=== PATIENT | male | born 1980 | race Caucasian/White ===

== ENCOUNTER 2019-03-04 14:45 | Inpatient (IN) | payer OTHER ==
[2019-03-04] MEDS ORDERED: VANCOMYCIN IV PER PHARMACY 1 EACH MISC MISCELLANE PRN (15:06)
[2019-03-04] MEDS ORDERED: PIPERACILLIN-TAZOBACTAM 3.375 GM in SODIUM CHLORIDE 0.9% 100 ML IVPB STA (15:06)
[2019-03-04] MEDS ORDERED: ACETAMINOPHEN TAB 325 MG TAB PO PRN (15:17)
[2019-03-04] MEDS ORDERED: NALOXONE 0.4 MG/ML 1 ML VIAL IV PRN (15:17)
[2019-03-04] MEDS ORDERED: HYDROcodone/APAP 5-325MG 1 EACH TAB PO PRN (15:17)
[2019-03-04] MEDS ORDERED: ONDANSETRON 4 MG/2 ML VIAL IVP PRN (15:17)
--- NOTE | 2019-03-04 15:17 | ED ---
Skin/Abscess/FB HPI <Lc Richardson - Last Filed: 03/04/19 15:25> - General Source: patient, EMS Mode of arrival: EMS Limitations: no limitations <Moises Guardado - Last Filed: 03/04/19 15:31> - General Chief complaint: Skin/Abscess/Foreign Body Stated complaint: Wound/Abscess Time Seen by Provider: 03/04/19 14:53 - History of Present Illness Initial comments: 38-year-old male presents emergency Department with chief complaint of left hand abscess. Patient is a transfer from [facility]. Patient received vancomycin 2 g. Patient was updated on his tetanus. Patient does admit to IV drug use. Patient symptoms started 5 days ago. He does have a history of MRSA. No fevers or chills. He states he has pain with range of motion of his hand. He has noticed some redness TO his left forearm. (Moises Guardado) - Related Data Home Medications Medication Instructions Recorded Confirmed Buprenorphine HCl/Naloxone HCl 1 film SL BID 03/04/19 03/04/19 [Suboxone 8 mg-2 mg Sl Film] Gabapentin [Neurontin] 800 mg PO QID 03/04/19 03/04/19 Allergies Allergy/AdvReac Type Severity Reaction Status Date / Time No Known Allergies Allergy Verified 03/04/19 14:59 Review of Systems ROS Other: All systems not noted in ROS Statement are negative. <Lc Richardson - Last Filed: 03/04/19 15:25> ROS Other: All systems not noted in ROS Statement are negative. <Moises Guardado - Last Filed: 03/04/19 15:31> ROS Statement: Those systems with pertinent positive or pertinent negative responses have been documented in the HPI. Past Medical History Past Medical History: No Reported History History of Any Multi-Drug Resistant Organisms: MRSA Date of last positivie culture/infection: February 2013 MDRO Source:: knee Past Surgical History: Orthopedic Surgery Past Psychological History: No Psychological Hx Reported Smoking Status: Current every day smoker Past Alcohol Use History: Occasional Past Drug Use History: Heroin, Marijuana, Prescription Drug Abuse <Moises Guardado - Last Filed: 03/04/19 15:31> General Exam Limitations: no limitations General appearance: alert, in no apparent distress Head exam: Present: atraumatic, normocephalic, normal inspection Respiratory exam: Present: normal lung sounds bilaterally. Absent: respiratory distress, wheezes, rales, rhonchi, stridor Cardiovascular Exam: Present: regular rate, normal rhythm, normal heart sounds. Absent: systolic murmur, diastolic murmur, rubs, gallop, clicks Extremities exam: Present: other (Left hand dorsal aspect there is extensive abscess approximately 3 cm in diameter, there is minimal drainage, pain with range of motion of the hand erythema extends to the left elbow region.) Skin exam: Present: warm, dry <Moises Guardado - Last Filed: 03/04/19 15:31> Course Vital Signs 03/04/19 14:59 Temperature 98 F Pulse Rate 94 Respiratory 90 H Rate Blood Pressure 131/81 O2 Sat by Pulse 98 Oximetry Procedures - Incision & Drainage Consent Obtained: verbal consent Site: hand (Left) Size (cm): 3 I&D Cleaning Method: Chloroprep Scalpel Used: #11 Culture Obtained?: Yes Patient Tolerated Procedure: well, no complications <Moises Guardado - Last Filed: 03/04/19 15:31> Medical Decision Making <Lc Richardson - Last Filed: 03/04/19 15:25> <Moises Guardado - Last Filed: 03/04/19 15:31> - Medical Decision Making I, Derian Richardson, personally saw and examined the patient. I have reviewed and agree with the PA findings, including all diagnostic interpretations and treatment plans as written unless otherwise stated. I was present for the singer portions of any procedures performed and the inclusive time noted for any critical care statement. (Lc Richardson) 38-year-old male presented for left hand abscess. Patient we given Zosyn addition to his vancomycin he received that prior Hospital. Patient had repeat labs included CBC, lactic and blood cultures. Wound culture was obtained. Patient be admitted to medicine with consult to surgery (Moises Guardado) Disposition <Lc Richardson - Last Filed: 03/04/19 15:25> <Moises Guardado - Last Filed: 03/04/19 15:31> Clinical Impression: Abscess of left hand, Cellulitis of left arm, IVDU (intravenous drug user) Disposition: ADMITTED IP TO THIS HOSP Condition: Fair Referrals: Teddy Robledo MD [Primary Care Provider] - 1-2 days
[2019-03-04] MEDS ORDERED: MORPHINE SULFATE 4 MG/ML SYRINGE IVP STA (15:36)
[2019-03-04] MEDS: SODIUM CHLORIDE 0.9% 1,000 ML IV SCH (15:51)
[2019-03-04 16:17] LABS: Basophils # (A) 0.1 k/uL (0-0.2); Basophils % (A) 0 %; Eosinophils # (A) 0.4 k/uL (0-0.7); Eosinophils % (A) 2 %; HCT 37.7 % (39.0-53.0); HGB 12.6 gm/dL (13.0-17.5); Lymphocytes # (A) 1.6 k/uL (1.0-4.8); Lymphocytes % (A) 10 %; MCH 29.2 pg (25.0-35.0); MCHC 33.4 g/dL (31.0-37.0); MCV 87.5 fL (80.0-100.0); Mean Platelet Volume 7.2; Monocytes # (A) 0.9 k/uL (0-1.0); Monocytes % (A) 6 %; Neutrophils % (A) 79 %; Platelet Count 207 k/uL (150-450); RBC 4.31 m/uL (4.30-5.90); RDW 14.2 % (11.5-15.5); WBC 16.5 k/uL (3.8-10.6)
--- NOTE | 2019-03-04 16:55 | P.HPIM ---
History of Present Illness 38-year-old pleasant gentleman with known history of IV drug use has been doing that for the Lasix came in with an abscess of the left hand with cellulitis extending up to the arm patient has extensive abscess which was drained in ER will need the surgical drainage by orthopedic surgery. Patient was started on vancomycin as well as Zosyn patient may not require Zosyn wound cultures were obtained blood cultures were obtained patient was comparing of fever for couple days ago with the chills. Patient is on Suboxone. We'll also consult infectious disease. Patient is complaining of severe throbbing pain and abscess site area patient has a small pimple-like abscess in the right dorsal aspect of the hand as well Review of Systems REVIEW OF SYSTEMS: CONSTITUTIONAL: No fever, no malaise, no fatigue. HEENT: No recent visual problems or hearing problems. Denied any sore throat. CARDIOVASCULAR: No chest pain, orthopnea, PND, no palpitations, no syncope. PULMONARY: No shortness of breath, no cough, no hemoptysis. GASTROINTESTINAL: No diarrhea, no nausea, no vomiting, no abdominal pain. NEUROLOGICAL: No headaches, no weakness, no numbness. HEMATOLOGICAL: Denies any bleeding or petechiae. GENITOURINARY: Denies any burning micturition, frequency, or urgency. MUSCULOSKELETAL/RHEUMATOLOGICAL: Denies any joint pain, swelling, or any muscle pain. ENDOCRINE: Denies any polyuria or polydipsia. The rest of the 14-point review of systems is negative. Past Medical History Past Medical History: No Reported History History of Any Multi-Drug Resistant Organisms: MRSA Date of last positivie culture/infection: February 2013 MDRO Source:: knee Past Surgical History: Orthopedic Surgery Additional Past Surgical History / Comment(s): rt knee arthoscopy Past Anesthesia/Blood Transfusion Reactions: No Reported Reaction Past Psychological History: No Psychological Hx Reported Smoking Status: Current every day smoker Past Alcohol Use History: Occasional Past Drug Use History: Heroin, Marijuana, Prescription Drug Abuse - Past Family History Mother Family Medical History: Cancer Medications and Allergies Home Medications Medication Instructions Recorded Confirmed Type Buprenorphine HCl/Naloxone HCl 1 film SL BID 03/04/19 03/04/19 History [Suboxone 8 mg-2 mg Sl Film] Gabapentin [Neurontin] 800 mg PO QID 03/04/19 03/04/19 History Allergies Allergy/AdvReac Type Severity Reaction Status Date / Time No Known Allergies Allergy Verified 03/04/19 14:59 Physical Exam Vitals: Vital Signs Temp Pulse Resp BP Pulse Ox 03/04/19 15:56 98 F 92 20 132/78 99 03/04/19 14:59 98 F 94 20 131/81 98 Intake and Output 03/04/19 03/04/19 03/04/19 06:59 14:59 22:59 Other: Weight 106.594 kg PHYSICAL EXAMINATION: GENERAL: The patient is alert and oriented x3, not in any acute distress. Obese HEENT: Pupils are round and equally reacting to light. EOMI. No scleral icterus. No conjunctival pallor. Normocephalic, atraumatic. No pharyngeal erythema. No thyromegaly. CARDIOVASCULAR: S1 and S2 present. No murmurs, rubs, or gallops. PULMONARY: Chest is clear to auscultation, no wheezing or crackles. ABDOMEN: Soft, nontender, nondistended, normoactive bowel sounds. No palpable organomegaly. MUSCULOSKELETAL: No joint swelling or deformity.Abscess in the left arm as described above along with the abscess on the left dorsum with swelling of and tired left hand with redness local is of temperature Abscess as mentioned above cellulitis extensive cellulitis and patient has a very small abscess in the dorsum of the right hand as well EXTREMITIES: No cyanosis, clubbing, or pedal edema. NEUROLOGICAL: Gross neurological examination did not reveal any focal deficits. SKIN: No rashes. Results CBC & Chem 7: 03/04/19 15:34 Labs: Abnormal Lab Results - Last 24 Hours (Table) 03/04/19 Range/Units 15:34 WBC 16.5 H (3.8-10.6) k/uL Hgb 12.6 L (13.0-17.5) gm/dL Hct 37.7 L (39.0-53.0) % Neutrophils # 13.0 H (1.3-7.7) k/uL Thrombosis Risk Factor Assmnt - Choose All That Apply Each Factor Represents 1 point: Obesity (BMI >25) Thrombosis Risk Factor Assessment Total Risk Factor Score: 1 Thrombosis Risk Factor Assessment Level: Low Risk Assessment and Plan Plan: Abscess of the left hand with extensive cellulitis along with small abscess in the right hand (abscess will need another drainage of pelvic surgery was consulted will continue with the Lianna and vancomycin IV fluids. -IV drug use history: Extensive counseling was provided and patient will be resumed on his Suboxone, will obtain acute hepatitis panel -Marijuana use and nicotine abuse: Counseling was provided -Leukocytosis secondary to abscess Patient will need pharmacologic GI as well as DVT prophylaxis
[2019-03-04 17:06] LABS: Anion Gap 6 mmol/L; Blood Urea Nitrogen 17 mg/dL (9-20); Calcium 9.4 mg/dL (8.4-10.2); Carbon Dioxide 23 mmol/L (22-30); Chloride 109 mmol/L (98-107); Glucose 116 mg/dL (74-99); Potassium 5.1 mmol/L (3.5-5.1); Sodium 138 mmol/L (137-145)
[2019-03-04] MEDS: GABAPENTIN 400 MG CAP PO SCH ×2 (17:39→20:37)
[2019-03-04] MEDS: NICOTINE 21MG/24HR PATCH TRANSDERM SCH (17:39)
--- NOTE | 2019-03-04 18:17 | P.CNOR ---
History of Present Illness - [facility] Consult date: 03/04/19 Consult reason: other (left hand abscess) History of present illness: The patient is a 38-year-old [id number] male who was transferred from [facility] for treatment of an abscess in his left hand. He has a history of IV drug abuse and admits to injecting heroin in the back of his left hand about a week ago. He most recently injected last night in the left antecubital fossa. He states the pain, redness and swelling in his left hand began a few days ago. He denies fevers, chills or recent illness. He has a history of prior MRSA infection in his right knee which was treated with "scrapings." The pain is localized to the left hand and wrist and he denies other focal areas of pain at this time. He works in a restaurant. He smokes a pack a day. Past Medical History Past Medical History: No Reported History History of Any Multi-Drug Resistant Organisms: MRSA Year Discovered:: February 2013 MDRO Source:: knee Past Surgical History: Orthopedic Surgery Additional Past Surgical History / Comment(s): rt knee arthoscopy Past Anesthesia/Blood Transfusion Reactions: No Reported Reaction Past Psychological History: No Psychological Hx Reported Smoking Status: Current every day smoker Past Alcohol Use History: Occasional Past Drug Use History: Heroin, Marijuana, Prescription Drug Abuse - Past Family History Mother Family Medical History: Cancer Medications and Allergies Home Medications Medication Instructions Recorded Confirmed Type Buprenorphine HCl/Naloxone HCl 1 film SL BID 03/04/19 03/04/19 History [Suboxone 8 mg-2 mg Sl Film] Gabapentin [Neurontin] 800 mg PO QID 03/04/19 03/04/19 History Allergies Allergy/AdvReac Type Severity Reaction Status Date / Time No Known Allergies Allergy Verified 03/04/19 14:59 Physical Examination There is a 4 cm x 4 cm focal abscess on the dorsal aspect of the left hand at the midshaft level of the fourth metacarpal. There is purulent, reddish-brown fluid draining from a small, punctate wound at its center. 2-3 mL was expressed with manual pressure. The overlying skin is thin and friable. There is moderate, diffuse edema throughout the dorsal radial aspect of the hand and first web space. This is minimally tender to palpation and there is no subcutaneous crepitus. Gentle passive flexion and extension of the fingers reveals minimal discomfort but he has pain with active motion, particularly the extreme of flexion. There are no discrete tendinous adhesions and he can actively extend all fingers. He has no pain with active or passive wrist motion. Mild erythema is noted extending custodial up the volar forearm. This is also nontender to palpation. There is a 2 cm x 3 cm raised, erythematous area over the volar wrist and another over the dorsal aspect of the right hand. These are not tender to palpation and not fluctuant. Results - Labs Labs: Abnormal Lab Results - Last 24 Hours (Table) 03/04/19 03/04/19 Range/Units 15:34 16:24 WBC 16.5 H (3.8-10.6) k/uL Hgb 12.6 L (13.0-17.5) gm/dL Hct 37.7 L (39.0-53.0) % Neutrophils # 13.0 H (1.3-7.7) k/uL Chloride 109 H (98-107) mmol/L Creatinine 0.62 L (0.66-1.25) mg/dL Glucose 116 H (74-99) mg/dL H & H 03/04/19 Range/Units 15:34 Hgb 12.6 L (13.0-17.5) gm/dL Hct 37.7 L (39.0-53.0) % Result Diagrams: 03/04/19 15:34 03/04/19 16:24 Assessment and Plan Assessment: 1. Left hand abscess 2. History of IV drug/polysubstance abuse and MRSA infection 3. Nicotine addiction Plan: I discussed the clinical findings with Mr. Miller in detail. We discussed treatment options including local wound care and continued IV antibiotics versus surgical debridement. The abscess appears quite localized and it is actively draining. The surrounding skin is very friable and likely to necrosis with additional surgical trauma. I recommended continuing the IV antibiotics overnight and reassessing the hand in the morning. If he fails to show significant clinical improvement, we will proceed with surgical incision and drainage. We discussed risks and benefits including wound healing complications, extensor tendon adhesions, persisting infection and possible need for additional surgery. We also discussed the negative effects of cigarette smoking, particularly as it relates to wound healing complications and increased risk of infection. I strongly advised him to quit or at least cut down. I recommended beginning application of warm compresses (do not apply ice). The patient was instructed to perform active and passive motion of his fingers, hand and wrist as frequently as possible. Dressings may be changed as needed. Questions were invited and answered. The patient expressed understanding and was in agreement with the initial treatment plan. Steve Beck D.O. [facility]
--- NOTE | 2019-03-04 18:55 | XR ---
EXAMINATION TYPE: XR hand complete LT DATE OF EXAM: 03/04/2019 COMPARISON: NONE HISTORY: Hand abscess TECHNIQUE: 3 views FINDINGS: There is diffuse soft tissue swelling around the metacarpals. I see no fracture nor disloca tion. There is no focal bone destruction. Joint spaces are fairly normal. IMPRESSION: Soft tissue swelling. No fracture seen. No sign of osteomyelitis.
[2019-03-04] MEDS: NON-FORMULARY DRUG (Buprenorphine Hcl/Naloxone Hcl [Suboxone 8 Mg-2 Mg Sl Film] 1 FILM) SL SCH (20:37)
[2019-03-04] MEDS: FAMOTIDINE 20 MG TAB PO SCH (20:37)
[2019-03-04] MEDS: VANCOMYCIN 1,750 MG in SODIUM CHLORIDE 0.9% 500 ML 500 ML IVPB SCH (20:37)
[2019-03-04] MEDS: MORPHINE SULFATE 4 MG/ML SYRINGE IV PRN (21:32)
--- NOTE | 2019-03-04 22:30 | P.CONS ---
History of Present Illness - Reason for Consult Consult date: 03/04/19 Left hand abscess and cellulitis Requesting physician: Eli Walker - Chief Complaint Left hand and arm pain and swelling x few days - History of Present Illness Patient is 38 year male with a past medical history significant for IV drug abuse last her dose has been about a week ago the patient injecting dorsum of his left hand, although the last few days the patient left hand dorsum has becoming more swollen and red and painful pain described to without clubbing almost 10 out of 10 with severe the patient did have associated significant swelling and redness of the left hand with redness spreading to the left forearm, with the symptoms the patient presented to [facility] ER the patient was evaluated by the ER physician on arrival to the area the patient has been afebrile however did have elevated white count of 16,000 the patient did loaiza ve x-rays of the left hand which did show some soft tissue swelling but no bony changes patient has been started on Zosyn and vancomycin subsequently added and infectious disease was consulted for further recommendation regarding antibiotic therapy Review of Systems CONSTITUTIONAL: Positive for weakness. Some chills but denies high-grade Fever EYES: No complaint. ENT:No complaint. RESPIRATORY: No complaint. CARDIOVASCULAR: No complaint. GENITOURINARY: No complaint. GASTROINTESTINAL: No complaint. MUSCULOSKELETAL: No complaint. INTEGUMENTARY: As per history of present illness. PSYCHOLOGICAL: No complaint. ENDOCRINE: No complaint. NEUROLOGIC: No complaint. Past Medical History Past Medical History: No Reported History History of Any Multi-Drug Resistant Organisms: MRSA Year Discovered:: February 2013 MDRO Source:: knee Past Surgical History: Orthopedic Surgery Additional Past Surgical History / Comment(s): rt knee arthoscopy Past Anesthesia/Blood Transfusion Reactions: No Reported Reaction Past Psychological History: No Psychological Hx Reported Smoking Status: Current every day smoker Past Alcohol Use History: Occasional Past Drug Use History: Heroin, Marijuana, Prescription Drug Abuse - Past Family History Mother Family Medical History: Cancer Medications and Allergies Home Medications Medication Instructions Recorded Confirmed Type Buprenorphine HCl/Naloxone HCl 1 film SL BID 03/04/19 03/04/19 History [Suboxone 8 mg-2 mg Sl Film] Gabapentin [Neurontin] 800 mg PO QID 03/04/19 03/04/19 History Allergies Allergy/AdvReac Type Severity Reaction Status Date / Time No Known Allergies Allergy Verified 03/04/19 14:59 Physical Exam Vitals: Vital Signs Temp Pulse Pulse Resp BP BP Pulse Ox 03/04/19 16:57 99.0 F 89 16 166/89 99 03/04/19 15:56 98 F 92 20 132/78 99 03/04/19 14:59 98 F 94 20 131/81 98 Intake and Output 03/04/19 03/04/19 03/04/19 06:59 14:59 22:59 Other: Weight 106.594 kg GENERAL DESCRIPTION: Middle-aged male lying in bed, no distress. No tachypnea or accessory muscle of respiration use. HEENT: Shows Pallor , no scleral icterus. Oral mucous membrane is dry. No pharyngeal erythema or thrush NECK: Trachea central, no thyromegaly. LUNGS: Unlabored breathing. Clear to auscultation anteriorly. No wheeze or crackle. HEART: S1, S2, regular rate and rhythm. No loud murmur ABDOMEN: Soft, no tenderness , guarding or rigidity, no organomegaly EXTREMITIES: Left hand dorsum is swollen and red with purulent drainage tender and warm to touch. SKIN: No rash, no masses palpable. NEUROLOGICAL: The patient is awake, alert, oriented x3, mood and affect normal. Results CBC & Chem 7: 03/04/19 15:34 03/04/19 16:24 Labs: Abnormal Lab Results - Last 24 Hours (Table) 03/04/19 03/04/19 Range/Units 15:34 16:24 WBC 16.5 H (3.8-10.6) k/uL Hgb 12.6 L (13.0-17.5) gm/dL Hct 37.7 L (39.0-53.0) % Neutrophils # 13.0 H (1.3-7.7) k/uL Chloride 109 H (98-107) mmol/L Creatinine 0.62 L (0.66-1.25) mg/dL Glucose 116 H (74-99) mg/dL Assessment and Plan Assessment: 1-patient presented to hospital with acute left hand dorsum and forearm swelling and redness have a some drainage in this patient who did have history of IV drug use injury to the area about a week ago likely with evidence of abscess with secondary cellulitis organism need to cover the gram-positive skin kraig such as strep as well as MRSA and also gram-negative pathogen such as pseudomonas aeruginosa, (1) Abscess of left hand Current Visit: Yes Status: Acute Code(s): L02.512 - CUTANEOUS ABSCESS OF LEFT HAND SNOMED Code(s): 02099120231279752 (2) Cellulitis of left arm Current Visit: Yes Status: Acute Code(s): L03.114 - CELLULITIS OF LEFT UPPER LIMB SNOMED Code(s): 680996906 Plan: 1-blood and local culture has been obtained those will be followed 2-hand surgery is on the case and possible drainage of this abscess tomorrow 3-patient will be treated with vancomycin pharmacy to dose target trough of 15 or watching Vanco trough and kidney function closely however discontinue Zosyn and start the patient cefepime 2 g every 12hr to cover for the gram negative pathogen We will follow-up on clinical condition and cultures to further adjust m edication if needed Thank you for this consultation will follow this patient along with you Time with Patient: Greater than 30
[2019-03-04] MEDS: CEFEPIME 2 GM in SODIUM CHLORIDE 0.9% 100 ML IVPB SCH (23:33)
[2019-03-04] MEDS: HEPARIN SODIUM,PORCINE 5,000 UNIT/ML 1 ML VIAL SQ SCH (23:33)
[2019-03-05] MEDS ORDERED: PIPERACILLIN-TAZOBACTAM 3.375 GM in SODIUM CHLORIDE 0.9% 100 ML IVPB SCH ×2
[2019-03-05] MEDS: MORPHINE SULFATE 4 MG/ML SYRINGE IV PRN ×5 (02:10→23:19)
[2019-03-05] MEDS: VANCOMYCIN 1,750 MG in SODIUM CHLORIDE 0.9% 500 ML 500 ML IVPB SCH ×3 (05:52→23:19)
[2019-03-05] MEDS: SODIUM CHLORIDE 0.9% 1,000 ML IV SCH ×2 (05:53→17:39)
--- NOTE | 2019-03-05 06:54 | P.PN ---
Subjective Progress Note Date: 03/05/19 The patient reports that he has been working on active and passive motion of his hand feels the pressure has decreased. States the pain is well-controlled. Objective - Vital Signs Vital signs: Vital Signs Temp 99.5 F 03/05/19 05:00 Pulse 109 H 03/05/19 06:03 Resp 20 03/05/19 05:00 BP 130/69 03/05/19 05:00 Pulse Ox 96 03/05/19 05:00 Intake & Output 03/04/19 03/04/19 03/05/19 06:59 18:59 06:59 Intake Total 500 Balance 500 Weight 106.594 kg Intake: Oral 500 Other: # Voids 1 - Exam Patient was sleeping comfortably upon entering. Dressings shadowed with rust-colored fluid. Previously decompressed abscess shows fluid reaccumulation and a moderate amount of purulent fluid expressed again. Locally erythema around the wound has increased. He is still able to actively and passively extend the digits with only mild discomfort. - Additional findings Additional findings: X-ray, left hand: Demonstrates soft tissue swelling, most prominent dorsally. No subcutaneous air. No osseous lucencies or erosions to suggest osteomyelitis. - Labs CBC & Chem 7: 03/04/19 15:34 03/04/19 16:24 Labs: Abnormal Lab Results - Last 24 Hours (Table) 03/04/19 03/04/19 03/04/19 Range/Units 15:34 15:34 16:24 WBC 16.5 H (3.8-10.6) k/uL Hgb 12.6 L (13.0-17.5) gm/dL Hct 37.7 L (39.0-53.0) % Neutrophils # 13.0 H (1.3-7.7) k/uL ESR 25 H (0-15) mm/hr Chloride 109 H (98-107) mmol/L Creatinine 0.62 L (0.66-1.25) mg/dL Glucose 116 H (74-99) mg/dL C-Reactive Protein (<10.0) mg/L 03/04/19 Range/Units 19:07 WBC (3.8-10.6) k/uL Hgb (13.0-17.5) gm/dL Hct (39.0-53.0) % Neutrophils # (1.3-7.7) k/uL ESR (0-15) mm/hr Chloride (98-107) mmol/L Creatinine (0.66-1.25) mg/dL Glucose (74-99) mg/dL C-Reactive Protein 167.9 H (<10.0) mg/L Microbiology - Last 24 Hours (Table) 03/04/19 15:34 Gram Stain - Preliminary Arm - Left Wound Culture - Preliminary Assessment and Plan Assessment: 1. Left hand abscess 2. IV drug/polysubstance abuse and history of prior MRSA infection 3. Nicotine addiction Plan: The abscess is not adequately draining on its own and I recommended proceeding with formal operative incision and drainage. We discussed the likelihood of skin sloughing, wound breakdown and adhesions, possibly necessitating further surgery for wound coverage or tenolysis. The patient expressed understanding and was in agreement to proceed with surgery. Keep NPO. Plan for OR this afternoon. Steve Beck D.O. [facility]
[2019-03-05] MEDS: NON-FORMULARY DRUG (Buprenorphine Hcl/Naloxone Hcl [Suboxone 8 Mg-2 Mg Sl Film] 1 FILM) SL SCH ×2 (07:06→21:58)
[2019-03-05] MEDS: HEPARIN SODIUM,PORCINE 5,000 UNIT/ML 1 ML VIAL SQ SCH ×3 (07:06→23:19)
[2019-03-05] MEDS: FAMOTIDINE 20 MG TAB PO SCH ×2 (07:07→21:07)
[2019-03-05] MEDS: NICOTINE 21MG/24HR PATCH TRANSDERM SCH (07:08)
[2019-03-05] MEDS: CEFEPIME 2 GM in SODIUM CHLORIDE 0.9% 100 ML IVPB SCH ×2 (07:08→21:59)
[2019-03-05] MEDS: GABAPENTIN 400 MG CAP PO SCH ×4 (07:08→21:07)
[2019-03-05] MEDS: KETOROLAC 30 MG/ML 1 ML VIAL IVP PRN (08:21)
[2019-03-05] MEDS ORDERED: CEFEPIME 2 GM in SODIUM CHLORIDE 0.9% 100 ML IVPB SCH (09:00)
[2019-03-05 10:01] LABS: ALT 271 U/L (21-72); AST 182 U/L (17-59); Albumin 3.2 g/dL (3.5-5.0); Alkaline Phosphatase 98 U/L (38-126); Anion Gap 7 mmol/L; Blood Urea Nitrogen 11 mg/dL (9-20); Calcium 8.2 mg/dL (8.4-10.2); Carbon Dioxide 24 mmol/L (22-30); Chloride 105 mmol/L (98-107); Glucose 84 mg/dL (74-99); Sodium 136 mmol/L (137-145); Total Bilirubin 1.4 mg/dL (0.2-1.3); Total Protein 6.8 g/dL (6.3-8.2)
[2019-03-05 10:13] LABS: Potassium 4.8 mmol/L (3.5-5.1)
[2019-03-05 11:05] LABS: HCT 38.9 % (39.0-53.0); HGB 13.2 gm/dL (13.0-17.5); MCH 29.9 pg (25.0-35.0); MCV 88.1 fL (80.0-100.0); Mean Platelet Volume 9.6; Platelet Count 166 k/uL (150-450); RBC 4.41 m/uL (4.30-5.90); RDW 15.2 % (11.5-15.5); WBC 12.6 k/uL (3.8-10.6)
--- NOTE | 2019-03-05 14:03 | P.PN ---
Subjective 38-year-old with IV drug use is admitted for left hand cellulitis an abscess with a small abscess in the right hand. Patient will undergo incision and drainage of the left hand.wound cultures are showing gram-positive organism patient is presently on daptomycin and cefepime infectious disease evaluate the patient as well patient redness has come down but does have significant swelling and abscess which may need to be drained. Constitutional: Denied any fatigue denied any fever. Cardio vascular: denied any chest pain, palpitations Gastrointestinal denied any nausea vomiting Pulmonary: Denied any shortness of breath cough Neurologic denied any new focal deficits All inpatient medications were reviewed and appropriate changes in these medi cations as dictated in the interval history and assessment and plan. Objective - Vital Signs Vital signs: Vital Signs Temp 98.5 F 03/05/19 13:58 Pulse 82 03/05/19 13:58 Resp 16 03/05/19 13:58 BP 152/87 03/05/19 13:58 Pulse Ox 98 03/05/19 13:58 Intake & Output 03/04/19 03/05/19 03/05/19 18:59 06:59 18:59 Intake Total 500 Balance 500 Weight 106.594 kg Intake: Oral 500 Other: Voiding Method Toilet # Voids 1 1 - Exam PHYSICAL EXAMINATION: GENERAL: The patient is alert and oriented x3, not in any acute distress. Obese HEENT: Pupils are round and equally reacting to light. EOMI. No scleral icterus. No conjunctival pallor. Normocephalic, atraumatic. No pharyngeal erythema. No thyromegaly. CARDIOVASCULAR: S1 and S2 present. No murmurs, rubs, or gallops. PULMONARY: Chest is clear to auscultation, no wheezing or crackles. ABDOMEN: Soft, nontender, nondistended, normoactive bowel sounds. No palpable organomegaly. MUSCULOSKELETAL: No joint swelling or deformity.Abscess in the left arm as described above along with the abscess on the left dorsum with swelling of and tired left hand with redness local is of temperature Abscess as mentioned above cellulitis extensive cellulitis and patient has a very small abscess in the dorsum of the right hand as well, redness in the left arm did improve EXTREMITIES: No cyanosis, clubbing, or pedal edema. NEUROLOGICAL: Gross neurological examination did not reveal any focal deficits. SKIN: No rashes. - Labs CBC & Chem 7: 03/05/19 08:35 03/05/19 08:35 Labs: Abnormal Lab Results - Last 24 Hours (Table) 03/04/19 03/04/19 03/04/19 Range/Units 15:34 15:34 16:24 WBC 16.5 H (3.8-10.6) k/uL Hgb 12.6 L (13.0-17.5) gm/dL Hct 37.7 L (39.0-53.0) % Neutrophils # 13.0 H (1.3-7.7) k/uL ESR 25 H (0-15) mm/hr Sodium (137-145) mmol/L Chloride 109 H (98-107) mmol/L Creatinine 0.62 L (0.66-1.25) mg/dL Glucose 116 H (74-99) mg/dL Calcium (8.4-10.2) mg/dL Total Bilirubin (0.2-1.3) mg/dL AST (17-59) U/L ALT (21-72) U/L C-Reactive Protein (<10.0) mg/L Albumin (3.5-5.0) g/dL 03/04/19 03/05/19 03/05/19 Range/Units 19:07 08:35 08:35 WBC 12.6 H (3.8-10.6) k/uL Hgb (13.0-17.5) gm/dL Hct 38.9 L (39.0-53.0) % Neutrophils # (1.3-7.7) k/uL ESR (0-15) mm/hr Sodium 136 L (137-145) mmol/L Chloride (98-107) mmol/L Creatinine (0.66-1.25) mg/dL Glucose (74-99) mg/dL Calcium 8.2 L (8.4-10.2) mg/dL Total Bilirubin 1.4 H (0.2-1.3) mg/dL AST 182 H (17-59) U/L ALT 271 H (21-72) U/L C-Reactive Protein 167.9 H (<10.0) mg/L Albumin 3.2 L (3.5-5.0) g/dL Microbiology - Last 24 Hours (Table) 03/04/19 15:34 Gram Stain - Preliminary Arm - Left Wound Culture - Preliminary Assessment and Plan Plan: Abscess of the left hand with extensive cellulitis along with small abscess in the right hand (abscess will need another drainage of pelvic surgery was consulted will continue with the cefepime and vancomycin IV fluids.incision and drainage today -Elevated liver enzymes probably secondary to chronic hepatitis C awaiting hep atitis panel repeat of the compressive metabolic profile tomorrow -IV drug use history: Extensive counseling was provided and patient will be resumed on his Suboxone, acute hepatitis panelpending -Marijuana use and nicotine abuse: Counseling was provided -Leukocytosis secondary to abscess Patient will need pharmacologic GI as well as DVT prophylaxis
[2019-03-05] MEDS ORDERED: IV FLUID CONTINUATION 1,000 ML IV ONE (14:07)
[2019-03-05] MEDS ORDERED: ONDANSETRON 4 MG/2 ML VIAL IVP PRN (14:38)
[2019-03-05] MEDS ORDERED: fentaNYL (PF) 50 MCG/ML 2 ML AMP ONE (14:42)
[2019-03-05] MEDS ORDERED: PROPOFOL 10 MG/ML 20 ML VIAL IV ONE (14:42)
[2019-03-05] MEDS ORDERED: MIDAZOLAM 2 MG/2 ML VIAL ONE (14:42)
[2019-03-05] MEDS ORDERED: LIDOCAINE 1% INJ 10MG/ML (20 ML MDV) ONE (14:42)
[2019-03-05] MEDS ORDERED: KETAMINE 10 MG/ML 20 ML VIAL ONE (14:42)
[2019-03-05] MEDS ORDERED: HYDROmorphone (PF) 1 MG/ML ONE (14:42)
--- NOTE | 2019-03-05 15:47 | PN ---
PROGRESS NOTE DATE OF SERVICE: 03/05/2019. REASON FOR FOLLOWUP: Left hand abscess and cellulitis. INTERVAL HISTORY: The patient is currently afebrile. The patient has been breathing comfortably. Pain to the left arm still throbbing but has slightly decreased in intensity compared to when he was admitted to hospital. No chest pain, shortness of breath or cough. No abdominal pain or diarrhea. PHYSICAL EXAMINATION: Blood pressure 152/87 with a pulse of 82, temperature 98.5. He is 98% on room air. General description is a middle-aged male lying in bed in no distress. RESPIRATORY SYSTEM: Unlabored breathing. Clear to auscultation anteriorly. HEART: S1, S2. Regular rate and rhythm. ABDOMEN: Soft. No tenderness. Left hand is currently dressed up with minimal drainage on the dressing. Still has some redness of the left arm. LABS: Hemoglobin 13.2, white count 12.6 with a BUN of 11, creatinine 0.69. Wound culture and blood culture so far pending. DIAGNOSTIC IMPRESSION AND PLAN: Patient with left hand abscess from IV drug use with secondary cellulitis. Patient at this time to continue with cefepime and vancomycin while waiting for the cultures to finalize. The patient is scheduled for I&D today, at which time deep culture should be obtained and will the patient tomorrow. Continue with supportive care. MMODL / IJN: [id number] /
[2019-03-05] MEDS ORDERED: LIDOCAINE 2% INJ 20 MG/ML SQ ONE (16:05)
[2019-03-05] MEDS ORDERED: BUPIVACAINE (PF) 0.5% 30 ML VIAL SQ ONE (16:05)
--- NOTE | 2019-03-05 16:39 | P.OP ---
Date of Procedure: 03/05/19 Preoperative Diagnosis: 1. Left hand abscess 2. IV drug abuse Postoperative Diagnosis: 1. Left hand abscess 2. IV drug abuse Procedure(s) Performed: Incision and drainage of left hand abscess Anesthesia: ELIZABETH, local Surgeon: Steve Beck Estimated Blood Loss (ml): 10 Pathology: other (swabs and tissue cultures) Condition: stable Disposition: PACU Indications for Procedure: The patient is a 38-year-old male who developed an abscess in his left hand secondary to injecting heroin. Surgical debridement was recommended. Risks and benefits were discussed, including persistent infection, wound healing problems or dehiscence, adhesions and possible need for repeat debridement. Questions were invited and answered. The patient expressed understanding, acceptance of the risks and wished to proceed with surgery. The operative site was confirmed and marked. Consent forms were signed. Operative Findings: Several cc's of gross purulence tracking along the dorsum of the hand. No appreciable extension along the dorsal wrist, forearm or into volar aspect of hand. Description of Procedure: The patient was positioned supine with the operative limb on an arm board. General anesthesia was administered uneventfully. A tourniquet was placed on the arm. A time-out was performed, confirming the patient, the operative side, site and the procedure to be performed: all team members expressed agreement. The right upper extremity was prepped and draped in standard, sterile fashion. The limb was exsanguinated with gravity and the tourniquet was inflated. Loupe magnification was used throughout the case for optimum visualization. The skin at the central aspect of the abscess had necrosed. A longitudinal incision was marked extending proximally and distally. Skin was sharply incised and full-thickness skin flaps were elevated. Abundant purulent fluid was immediately encountered. A swab of this fluid was obtained. Purulent exudate of tissue was identified covering the dorsal surface of the hand above the extensor retinaculum. This was sharply and mechanically debrided with a scalpel and rongeur. This tissue was also sent for culture. The wound was bluntly explored from the fifth metacarpal to the first webspace. Pockets of purulent fluid were identified superficially but no extension into the deep intermetacarpal spaces was found. The infection did not appear to track into the volar aspect of the hand or dorsally along the wrist or forearm. The thick exudative tissue was debrided with a curette and rongeur. The wound was copiously irrigated with 1 L of normal saline. The tourniquet was released. Good hemostatis was obtained with pressure and electrocautery. Small segments of nonviable skin immediately adjacent to the ulcerated wound were sharply excised. The proximal and distal incisions were loosely closed with interrupted 4-0 Prolene sutures. A 2 cm x 2 cm open wound remained centrally. This was loosely reapproximated over 2 brianna drains. Sterile dressings of 4 x 4's, ABD's, Ronak and Coban were applied. Local anesthetic without epinephrine was injected in a field block across the dorsal distal forearm for adjunctive pain control. All sponge, needle and instrument counts were correct at the end of the case. The patient tolerated the procedure well. He was taken to recovery in stable condition. The patient will be returned to the floor for continued IV antibiotics.
[2019-03-05] MEDS: HYDROmorphone 0.5 MG/0.5 ML SYRINGE IVP PRN ×2 (16:55→17:00)
[2019-03-05] MEDS: LACTATED RINGERS 1,000 ML IV SCH (17:38)
[2019-03-05 20:56] LABS: Hepatitis A Antibody IgM Non-Reactive (Non-Reactive); Hepatitis B Core IgM Non-Reactive (Non-Reactive)
[2019-03-06] MEDS ORDERED: VANCOMYCIN TROUGH DUE 1 EACH MISC MISCELLANE ONE (05:00)
[2019-03-06] MEDS: MORPHINE SULFATE 4 MG/ML SYRINGE IV PRN ×4 (05:52→20:50)
[2019-03-06] MEDS: VANCOMYCIN 1,750 MG in SODIUM CHLORIDE 0.9% 500 ML 500 ML IVPB SCH (05:52)
[2019-03-06 06:52] LABS: HCT 39.8 % (39.0-53.0); HGB 12.6 gm/dL (13.0-17.5); MCHC 31.6 g/dL (31.0-37.0); MCV 88.6 fL (80.0-100.0); Mean Platelet Volume 7.5; Platelet Count 268 k/uL (150-450); RBC 4.49 m/uL (4.30-5.90); RDW 14.6 % (11.5-15.5); WBC 10.4 k/uL (3.8-10.6)
[2019-03-06 07:18] LABS: ALT 260 U/L (21-72); AST 158 U/L (17-59); Albumin 3.2 g/dL (3.5-5.0); Alkaline Phosphatase 117 U/L (38-126); Anion Gap 5 mmol/L; Blood Urea Nitrogen 12 mg/dL (9-20); Calcium 8.4 mg/dL (8.4-10.2); Carbon Dioxide 27 mmol/L (22-30); Chloride 107 mmol/L (98-107); Glucose 82 mg/dL (74-99); Potassium 4.5 mmol/L (3.5-5.1); Sodium 139 mmol/L (137-145); Total Protein 6.6 g/dL (6.3-8.2)
[2019-03-06] MEDS: NON-FORMULARY DRUG (Buprenorphine Hcl/Naloxone Hcl [Suboxone 8 Mg-2 Mg Sl Film] 1 FILM) SL SCH ×2 (08:24→20:46)
[2019-03-06] MEDS: HEPARIN SODIUM,PORCINE 5,000 UNIT/ML 1 ML VIAL SQ SCH ×2 (08:32→15:31)
[2019-03-06] MEDS: NICOTINE 21MG/24HR PATCH TRANSDERM SCH (08:32)
[2019-03-06] MEDS: GABAPENTIN 400 MG CAP PO SCH ×4 (08:33→22:30)
[2019-03-06] MEDS: FAMOTIDINE 20 MG TAB PO SCH ×2 (08:33→20:51)
[2019-03-06] MEDS: SODIUM CHLORIDE 0.9% 1,000 ML IV SCH ×2 (08:43→22:32)
[2019-03-06] MEDS: CEFEPIME 2 GM in SODIUM CHLORIDE 0.9% 100 ML IVPB SCH ×2 (09:25→20:51)
--- NOTE | 2019-03-06 10:49 | P.PN ---
Subjective Progress Note Date: 03/06/19 The patient states the pain in the wrist and forearm have resolved. It is now localized only to the dorsum of the hand. He has been performing regular range of motion and stretching exercises as instructed. He feels that it is moving easier. Pain is well-controlled. Objective - Vital Signs Vital signs: Vital Signs Temp 97.6 F 03/06/19 05:15 Pulse 85 03/06/19 05:15 Resp 18 03/06/19 05:15 BP 120/76 03/06/19 05:15 Pulse Ox 99 03/06/19 05:15 Intake & Output 03/05/19 03/06/19 03/06/19 18:59 06:59 18:59 Intake Total 750 Output Total 10 1900 Balance 740 -1900 Intake: IV 750 Output: Urine 1900 Estimated Blood Loss 10 Other: Voiding Method Toilet # Voids 1 1 - Exam Dressings in place with mild strike-through. Edema in the dorsal hand is much improved. Thenar eminence is soft and nontender. Erythema and edema in the distal forearm has regressed. Patient is able to actively flex and extend the fingers with minimal discomfort. - Labs CBC & Chem 7: 03/06/19 05:40 03/06/19 05:40 Labs: Abnormal Lab Results - Last 24 Hours (Table) 03/05/19 03/05/19 03/06/19 Range/Units 08:35 08:35 05:40 WBC 12.6 H (3.8-10.6) k/uL Hgb 12.6 L (13.0-17.5) gm/dL Hct 38.9 L (39.0-53.0) % AST (17-59) U/L ALT (21-72) U/L Albumin (3.5-5.0) g/dL Hep C IgG Ab Reactive H (Non-Reactive) 03/06/19 Range/Units 05:40 WBC (3.8-10.6) k/uL Hgb (13.0-17.5) gm/dL Hct (39.0-53.0) % AST 158 H (17-59) U/L ALT 260 H (21-72) U/L Albumin 3.2 L (3.5-5.0) g/dL Hep C IgG Ab (Non-Reactive) Microbiology - Last 24 Hours (Table) 03/05/19 15:17 Gram Stain - Preliminary Hand - Left Tissue Culture - Preliminary Gram Neg Bacilli 03/05/19 15:17 Gram Stain - Preliminary Hand - Left Wound Culture - Preliminary Gram Neg Bacilli 03/05/19 15:17 Acid Fast Bacilli Smear - Final Hand - Left Acid Fast Bacilli Culture - Preliminary 03/05/19 15:17 Skin Fungal Culture - Preliminary Skin Scrapings 03/05/19 15:17 Anaerobic Culture - Preliminary Hand - Left 03/05/19 15:17 Anaerobic Culture - Preliminary Hand - Left 03/05/19 15:17 Fungal Culture - Preliminary Hand - Left 03/04/19 15:34 Blood Culture - Preliminary Blood No Growth after 24 hours Assessment and Plan Assessment: 1. POD#1 status-post I&D of left hand abscess 2. IV drug/polysubstance abuse and history of prior MRSA infection 3. Nicotine addiction Plan: I discussed the intraoperative findings with the patient. Preliminary cultures show a polymicrobial infection. I encouraged the patient to continue regular stretching and range of motion exercises. I will change the dressings tomorrow. Continue IV antibiotics per ID. Steve Beck D.O. [facility]
[2019-03-06] MEDS: LACTATED RINGERS 1,000 ML IV SCH (11:05)
--- NOTE | 2019-03-06 15:15 | P.PN ---
Subjective 38-year-old with IV drug use is admitted for left hand cellulitis an abscess with a small abscess in the right hand. Patient will undergo incision and drainage of the left hand.wound cultures are showing gram-positive organism patient is presently on daptomycin and cefepime infectious disease evaluate the patient as well patient redness has come down but does have significant swelling and abscess which may need to be drained. 03/06/2019 d patient underwent incision and drainage of the left hand abscess as today patient won't cultures are positive for gram-negative his lipid patient is presently on cefepime and vancomycin. Patient has positive hepatitis C same thing was informed to the patient counseling regarding heroine use and IV drug use was provided and will try to avoid morphine here. Patient liver enzymes are elevated but stable secondary to chronic hep C.we're awaiting the wound cultures and patient wanted and tomorrow to make sure patient the abscess doesn't recover. Constitutional: Denied any fatigue denied any fever. Cardio vascular: denied any chest pain, palpitations Gastrointestinal denied any nausea vomiting Pulmonary: Denied any shortness of breath cough Neurologic denied any new focal deficits All inpatient medications were reviewed and appropriate changes in these medications as dictated in the interval history and assessment and plan. Objective - Vital Signs Vital signs: Vital Signs Temp 98.9 F 03/06/19 13:10 Pulse 100 03/06/19 13:10 Resp 16 03/06/19 13:10 BP 145/89 03/06/19 13:10 Pulse Ox 98 03/06/19 13:10 Intake & Output 03/05/19 03/06/19 03/06/19 18:59 06:59 18:59 Intake Total 750 1100 Output Total 10 1900 Balance 740 -1900 1100 Intake: IV 750 Oral 1100 Output: Urine 1900 Estimated Blood Loss 10 Other: Voiding Method Toilet # Voids 1 2 - Exam PHYSICAL EXAMINATION: GENERAL: The patient is alert and oriented x3, not in any acute distress. Obese HEENT: Pupils are round and equally reacting to light. EOMI. No scleral icterus. No conjunctival pallor. Normocephalic, atraumatic. No pharyngeal erythema. No thyromegaly. CARDIOVASCULAR: S1 and S2 present. No murmurs, rubs, or gallops. PULMONARY: patient has crackles in the left lower lung bases ABDOMEN: Soft, nontender, nondistended, normoactive bowel sounds. No palpable organomegaly. MUSCULOSKELETAL: No joint swelling or deformit, left handwas postsurgical addressed, right hand mildly cellulitis still there EXTREMITIES: No cyanosis, clubbing, or pedal edema. NEUROLOGICAL: Gross neurological examination did not reveal any focal deficits. SKIN: No rashes. - Labs CBC & Chem 7: 03/06/19 05:40 03/06/19 05:40 Labs: Abnormal Lab Results - Last 24 Hours (Table) 03/05/19 03/06/19 03/06/19 Range/Units 08:35 05:40 05:40 Hgb 12.6 L (13.0-17.5) gm/dL AST 158 H (17-59) U/L ALT 260 H (21-72) U/L Albumin 3.2 L (3.5-5.0) g/dL Hep C IgG Ab Reactive H (Non-Reactive) Microbiology - Last 24 Hours (Table) 03/05/19 15:17 Gram Stain - Preliminary Hand - Left Tissue Culture - Preliminary Gram Neg Bacilli 03/05/19 15:17 Gram Stain - Preliminary Hand - Left Wound Culture - Preliminary Gram Neg Bacilli 03/05/19 15:17 Acid Fast Bacilli Smear - Final Hand - Left Acid Fast Bacilli Culture - Preliminary 03/05/19 15:17 Skin Fungal Culture - Preliminary Skin Scrapings 03/05/19 15:17 Anaerobic Culture - Preliminary Hand - Left 03/05/19 15:17 Anaerobic Culture - Preliminary Hand - Left 03/05/19 15:17 Fungal Culture - Preliminary Hand - Left 03/04/19 15:34 Blood Culture - Preliminary Blood No Growth after 24 hours Assessment and Plan Plan: Abscess of the left hand with extensive cellulitis along with small abscess in the right hand abscess and cellulitis patient is status post drainage patient has gram-negative bacilli in the wound cultures patient is presently in cefepime as well as vancomycin -Elevated liver enzymes probably secondary to chronic hepatitis C liver enzymes are fairly stable -Hepatitis C secondary to IV drug use patient will need to follow up with gastroenterology and infectious disease as an outpatient -IV drug use history: Extensive counseling was provided and patient will be r esumed on his Suboxone, -Marijuana use and nicotine abuse: Counseling was provided -Leukocytosis secondary to abscess, improving -possible atelectasis of the left lung: Incentive spirometry Patient will need pharmacologic GI as well as DVT prophylaxis
[2019-03-06] MEDS: VANCOMYCIN 1,500 MG in SODIUM CHLORIDE 0.9% 250 ML IVPB SCH (15:30)
[2019-03-06] MEDS: KETOROLAC 30 MG/ML 1 ML VIAL IVP PRN (18:35)
--- NOTE | 2019-03-06 20:55 | PN ---
PROGRESS NOTE DATE OF SERVICE: 03/06/2019. REASON FOR FOLLOWUP: Left hand abscess and cellulitis. INTERVAL HISTORY: The patient is currently afebrile. The patient is breathing comfortably. Pain to the left foot is currently controlled with pain medication that he is receiving that has been observed to be around 2/10. Denies having any chest pain, shortness of breath. No cough. No abdominal pain. No diarrhea. PHYSICAL EXAMINATION: Blood pressure 145/89 with a pulse of 100. Temperature 98.9. She is 98% on room air. General description is a middle aged male up in the chair in no distress. Respiratory system: Unlabored breathing. Clear to auscultation anteriorly. Heart S1, S2. Regular rate and rhythm. Abdomen soft. No tenderness. Left hand is currently dressed up. No obvious drainage on the dressing. LABS: Hemoglobin is 12.6, white count 10.4, BUN of 12, creatinine 0.71. Wound culture currently with gram-negative bacilli. DIAGNOSTIC IMPRESSION AND PLAN: 1. Patient with left hand abscess from IV drug use, status post drainage of this abscess. Culture with gram-negative. Patient is currently covered on cefepime. If no gram positive is grown, Vanco will be discontinued. Discharge antibiotic will depend upon the culture report. Continue supportive care. 2. The patient has chronic hepatitis C, currently not a candidate for treatment because of history of active drug use but can be watched in the outpatient setting. MMODL / IJN: [id number] /
[2019-03-07] MEDS: HEPARIN SODIUM,PORCINE 5,000 UNIT/ML 1 ML VIAL SQ SCH ×3 (00:21→16:47)
[2019-03-07] MEDS: VANCOMYCIN 1,500 MG in SODIUM CHLORIDE 0.9% 250 ML IVPB SCH ×2 (00:21→10:28)
[2019-03-07] MEDS: KETOROLAC 30 MG/ML 1 ML VIAL IVP PRN ×3 (04:28→16:47)
[2019-03-07 08:05] LABS: HCT 39.2 % (39.0-53.0); HGB 12.4 gm/dL (13.0-17.5); MCH 27.8 pg (25.0-35.0); MCHC 31.6 g/dL (31.0-37.0); MCV 88.1 fL (80.0-100.0); Mean Platelet Volume 6.4; Platelet Count 310 k/uL (150-450); RBC 4.45 m/uL (4.30-5.90); RDW 14.2 % (11.5-15.5); WBC 7.3 k/uL (3.8-10.6)
[2019-03-07 08:19] LABS: ALT 258 U/L (21-72); AST 175 U/L (17-59); Albumin 3.3 g/dL (3.5-5.0); Alkaline Phosphatase 137 U/L (38-126); Anion Gap 6 mmol/L; Blood Urea Nitrogen 12 mg/dL (9-20); Calcium 8.9 mg/dL (8.4-10.2); Carbon Dioxide 26 mmol/L (22-30); Chloride 109 mmol/L (98-107); Glucose 109 mg/dL (74-99); Potassium 4.5 mmol/L (3.5-5.1); Sodium 141 mmol/L (137-145); Total Bilirubin 0.7 mg/dL (0.2-1.3); Total Protein 6.9 g/dL (6.3-8.2)
[2019-03-07] MEDS: CEFEPIME 2 GM in SODIUM CHLORIDE 0.9% 100 ML IVPB SCH ×2 (10:19→20:37)
[2019-03-07] MEDS: NICOTINE 21MG/24HR PATCH TRANSDERM SCH (10:22)
[2019-03-07] MEDS: FAMOTIDINE 20 MG TAB PO SCH ×2 (10:22→20:36)
[2019-03-07] MEDS: GABAPENTIN 400 MG CAP PO SCH ×4 (10:22→21:30)
[2019-03-07] MEDS: SODIUM CHLORIDE 0.9% 1,000 ML IV SCH ×2 (10:23→19:11)
[2019-03-07] MEDS: MORPHINE SULFATE 4 MG/ML SYRINGE IV PRN ×3 (12:25→22:07)
--- NOTE | 2019-03-07 13:13 | P.PN ---
Subjective Progress Note Date: 03/07/19 The patient continued improvement and pain and swelling. There is only discomfort at the surgical site and this is minimal at rest. He has been performing regular ROM exercises. Denies new issues or concerns. Objective - Vital Signs Vital signs: Vital Signs Temp 97.6 F 03/07/19 12:35 Pulse 90 03/07/19 12:35 Resp 17 03/07/19 12:35 BP 144/94 03/07/19 12:35 Pulse Ox 96 03/07/19 12:35 Intake & Output 03/06/19 03/07/19 03/07/19 18:59 06:59 18:59 Intake Total 1100 1600 Balance 1100 1600 Intake: Intake, IV Titration 1250 Amount Cefepime 2 gm In Sodium 100 Chloride 0.9% 100 ml @ 200 mls/hr IVPB Q12HR [facility]AN[facility] Rx#:[id number] Sodium Chloride 0.9% 1, 650 000 ml @ 75 mls/hr IV . [id number] [facility] Rx#:[id number] Vancomycin 1,500 mg In 500 Sodium Chloride 0.9% 250 ml @ 167 mls/hr IVPB Q8H [facility] Rx#:[id number] Oral 1100 350 Other: Voiding Method Toilet # Voids 2 1 - Exam Dressings removed - dry but stained with moderate serosanguinous drainage. Incision is well approximated proximally and distally with sutures in place. No visible purulence. Drains were removed. No fluid was expressed after removal. Central aspect of the wound is gapped open about 1cm but no visible tenderness or neurovascular structures. There is no necrosis but the adjacent skin is mildly macerated and ecchymotic. Minimal pain with active wrist/digital flexion and extension. - Labs CBC & Chem 7: 03/07/19 07:19 03/07/19 07:19 Labs: Abnormal Lab Results - Last 24 Hours (Table) 03/07/19 03/07/19 Range/Units 07: 07: Hgb 12.4 L (13.0-17.5) gm/dL Chloride 109 H (98-107) mmol/L Creatinine 0.65 L (0.66-1.25) mg/dL Glucose 109 H (74-99) mg/dL AST 175 H (17-59) U/L ALT 258 H (21-72) U/L Alkaline Phosphatase 137 H (38-126) U/L Albumin 3.3 L (3.5-5.0) g/dL Microbiology - Last 24 Hours (Table) 03/04/19 15:34 Gram Stain - Final Arm - Left Wound Culture - Final Strep agalactiae - (group b) 03/04/19 15:34 Blood Culture - Preliminary Blood No Growth after 48 hours 03/05/19 15:17 Gram Stain - Preliminary Hand - Left Tissue Culture - Preliminary Gram Neg Bacilli 03/05/19 15:17 Gram Stain - Preliminary Hand - Left Wound Culture - Preliminary Gram Neg Bacilli Assessment and Plan Assessment: 1. POD#2 status-post I&D of left hand abscess 2. Initial cultures positive for Group B Strep 3. Chronic hepatitis C 4. IV drug/polysubstance abuse and history of prior MRSA infection 5. Nicotine addiction Plan: The hand shows continued clinical improvement. New dressings were applied. These may be changed as needed. No further surgical intervention planned at this time. Anticipate DC home once cultures are finalized. Encourage frequent ROM and the patient may use the hand as tolerated. Recommend eval by wound care team. Steve Beck D.O. [facility]
[2019-03-07] MEDS: NON-FORMULARY DRUG (Buprenorphine Hcl/Naloxone Hcl [Suboxone 8 Mg-2 Mg Sl Film] 1 FILM) SL SCH ×2 (14:13→20:54)
--- NOTE | 2019-03-07 14:15 | PN ---
PROGRESS NOTE DATE OF SERVICE: March 07, 2019. REASON FOR FOLLOWUP: Left hand abscess from IV drug use. INTERVAL HISTORY: The patient is currently afebrile. Pain to the left hand is about . No worsening. Denies having any chest pain. No shortness of breath or cough. No abdominal pain. No diarrhea. PHYSICAL EXAMINATION: Blood pressure is 144/94 with a pulse of 90, temperature 97.6. He is 96% on room air. General description is a middle aged male up in the room in no distress. Respiratory system: Unlabored breathing. Clear to auscultation anteriorly. Heart S1, S2. Regular rate and rhythm. Abdomen soft, no tenderness. Left hand is currently dressed up in OR dressings. No drainage on the dressing. LABS: Hemoglobin is 12.4 with a white count 7.3 with a BUN of 30, creatinine 0.65. Wound culture showing Streptococcus agalactiae and a gram-negative which has not been finalized yet. DIAGNOSTIC IMPRESSION AND PLAN: Patient with left hand abscess from IV drug use. Patient at this time to continue with cefepime. We are waiting for the ID sensitivity, if it is gram-negative, to determine his discharge antibiotics along with local wound care and continue supportive care. MMODL / IJN: [id number] /
--- NOTE | 2019-03-07 14:42 | P.PN ---
Subjective 38-year-old with IV drug use is admitted for left hand cellulitis an abscess with a small abscess in the right hand. Patient will undergo incision and drainage of the left hand.wound cultures are showing gram-positive organism patient is presently on daptomycin and cefepime infectious disease evaluate the patient as well patient redness has come down but does have significant swelling and abscess which may need to be drained. 03/06/2019 d patient underwent incision and drainage of the left hand abscess as today patient won't cultures are positive for gram-negative his lipid patient is presently on cefepime and vancomycin. Patient has positive hepatitis C same thing was informed to the patient counseling regarding heroine use and IV drug use was provided and will try to avoid morphine here. Patient liver enzymes are elevated but stable secondary to chronic hep C.we're awaiting the wound cultures and patient wanted and tomorrow to make sure patient the abscess doesn't recover. 03/07/2019 The wound cultures and studies are still not available yet patient probably will be discharged on oral and medics tomorrow depending on the organism and the sensitivity Constitutional: Denied any fatigue denied any fever. Cardio vascular: denied any chest pain, palpitations Gastrointestinal denied any nausea vomiting Pulmonary: Denied any shortness of breath cough Neurologic denied any new focal deficits All inpatient medications were reviewed and appropriate changes in these medications as dictated in the interval history and assessment and plan. Objective - Vital Signs Vital signs: Vital Signs Temp 97.6 F 03/07/19 12:35 Pulse 90 03/07/19 12:35 Resp 17 03/07/19 12:35 BP 144/94 03/07/19 12:35 Pulse Ox 96 03/07/19 12:35 Intake & Output 03/06/19 03/07/19 03/07/19 18:59 06:59 18:59 Intake Total 1100 1600 Balance 1100 1600 Intake: Intake, IV Titration 1250 Amount Cefepime 2 gm In Sodium 100 Chloride 0.9% 100 ml @ 200 mls/hr IVPB Q12HR [facility] Rx#:[id number] Sodium Chloride 0.9% 1, 650 000 ml @ 75 mls/hr IV . [id number] [facility] Rx#:[id number] Vancomycin 1,500 mg In 500 Sodium Chloride 0.9% 250 ml @ 167 mls/hr IVPB Q8H [facility] Rx#:[id number] Oral 1100 350 Other: Voiding Method Toilet # Voids 2 1 - Exam PHYSICAL EXAMINATION: GENERAL: The patient is alert and oriented x3, not in any acute distress. Obese HEENT: Pupils are round and equally reacting to light. EOMI. No scleral icterus. No conjunctival pallor. Normocephalic, atraumatic. No pharyngeal erythema. No thyromegaly. CARDIOVASCULAR: S1 and S2 present. No murmurs, rubs, or gallops. PULMONARY: patient has crackles in the left lower lung bases ABDOMEN: Soft, nontender, nondistended, normoactive bowel sounds. No palpable organomegaly. MUSCULOSKELETAL: No joint swelling or deformit, left handwas postsurgical addr essed, right hand mildly cellulitis still there EXTREMITIES: No cyanosis, clubbing, or pedal edema. NEUROLOGICAL: Gross neurological examination did not reveal any focal deficits. SKIN: No rashes. - Labs CBC & Chem 7: 03/07/19 07:19 03/07/19 07:19 Labs: Abnormal Lab Results - Last 24 Hours (Table) 03/07/19 03/07/19 Range/Units 07:19 07:19 Hgb 12.4 L (13.0-17.5) gm/dL Chloride 109 H (98-107) mmol/L Creatinine 0.65 L (0.66-1.25) mg/dL Glucose 109 H (74-99) mg/dL AST 175 H (17-59) U/L ALT 258 H (21-72) U/L Alkaline Phosphatase 137 H (38-126) U/L Albumin 3.3 L (3.5-5.0) g/dL Microbiology - Last 24 Hours (Table) 03/05/19 15:17 Gram Stain - Final Hand - Left Tissue Culture - Final Enterobacter cloacae Strep agalactiae - (group b) 03/05/19 15:17 Gram Stain - Preliminary Hand - Left Wound Culture - Preliminary Gram Neg Bacilli Strep agalactiae - (group b) 03/04/19 15:34 Gram Stain - Final Arm - Left Wound Culture - Final Strep agalactiae - (group b) 03/04/19 15:34 Blood Culture - Preliminary Blood No Growth after 48 hours Assessment and Plan Plan: Abscess of the left hand with extensive cellulitis along with small abscess in the right hand abscess and cellulitis patient is status post drainage patient has gram-negative bacilli in the wound cultures patient is presently in cefepime as well as vancomycin -Elevated liver enzymes probably secondary to chronic hepatitis C liver enzymes are fairly stable -Hepatitis C secondary to IV drug use patient will need to follow up with gastroenterology and infectious disease as an outpatient -IV drug use history: Extensive counseling was provided and patient will be resumed on his Suboxone, -Marijuana use and nicotine abuse: Counseling was provided -Leukocytosis secondary to abscess, improving -possible atelectasis of the left lung: Incentive spirometry Patient will need pharmacologic GI as well as DVT prophylaxis
[2019-03-07] MEDS ORDERED: VANCOMYCIN TROUGH DUE 1 EACH MISC MISCELLANE ONE (15:00)
[2019-03-07] MEDS: LACTATED RINGERS 1,000 ML IV SCH (16:43)
[2019-03-08] MEDS: HEPARIN SODIUM,PORCINE 5,000 UNIT/ML 1 ML VIAL SQ SCH ×2 (00:24→07:48)
[2019-03-08] MEDS: MORPHINE SULFATE 4 MG/ML SYRINGE IV PRN (07:46)
[2019-03-08] MEDS: GABAPENTIN 400 MG CAP PO SCH (07:47)
[2019-03-08] MEDS: FAMOTIDINE 20 MG TAB PO SCH (07:47)
[2019-03-08] MEDS: CEFEPIME 2 GM in SODIUM CHLORIDE 0.9% 100 ML IVPB SCH (07:47)
[2019-03-08] MEDS: NICOTINE 21MG/24HR PATCH TRANSDERM SCH (07:48)
[2019-03-08] MEDS: NON-FORMULARY DRUG (Buprenorphine Hcl/Naloxone Hcl [Suboxone 8 Mg-2 Mg Sl Film] 1 FILM) SL SCH (08:55)
[2019-03-08] MEDS: KETOROLAC 30 MG/ML 1 ML VIAL IVP PRN (10:27)
[2019-03-08 11:12] VITALS: RESP 16
[2019-03-08] MEDS: SODIUM CHLORIDE 0.9% 1,000 ML IV SCH (13:20)
[2019-03-08 13:59] VITALS: BP 145/90; PULSE 76; TEMP 97.6
--- NOTE | 2019-03-08 14:07 | PN ---
PROGRESS NOTE DATE OF SERVICE: 03/08/2019 REASON FOR FOLLOWUP: Left hand wound from drainage of an abscess. INTERVAL HISTORY: The patient is currently afebrile. Pain is currently controlled. Denies having any chest pain, no cough. No abdominal pain or any diarrhea. PHYSICAL EXAMINATION: Blood pressure 137/70 with a pulse of 79, temperature 98.1, he is 96% on room air. General description is a middle aged male, up in the room. RESPIRATORY SYSTEM: Unlabored breathing, clear to auscultation anteriorly. HEART: S1, S2, regular rate and rhythm. ABDOMEN: Soft, no tenderness. EXTREMITIES: Left hand wound with minimal surrounding erythema, no significant slough area. LABS: BUN of 12, creatinine 0.5, white count of 7.3. Wound culture has been Enterobacter and Streptococcus agalactiae. DIAGNOSTIC IMPRESSION/PLAN: Patient with a left hand dorsum wound from IV drug use, status post drainage consistent with Enterobacter and Streptococcus agalactiae and will probably transition to oral Cipro and Keflex for another 10 days. Local wound care . Follow up in [facility] next week. MMODL / IJN: [id number] /
--- NOTE | 2019-03-08 15:48 | P.DS ---
Providers Date of admission: 03/04/19 15:25 Attending physician: Jose Blas MD Consults: 03/04/19 15:17 Consult Physician Stat Consulting Provider: Steve Beck Consult Reason/Comments: Left hand abscess Do you want consulting provider notified?: Yes 03/04/19 16:50 Consult Physician Routine Consulting Provider: Nery Noguera Consult Reason/Comments: Abcess, IVDA Do you want consulting provider notified?: Yes Primary care physician: [facility] Course: 38-year-old with IV drug use is admitted for left hand cellulitis an abscess with a small abscess in the right hand. Patient will undergo incision and drainage of the left hand.wound cultures are showing gram-positive organism patient is presently on daptomycin and cefepime infectious disease evaluate the patient as well patient redness has come down but does have significant swelling and abscess which may need to be drained. 03/06/2019 d patient underwent incision and drainage of the left hand abscess as today patient won't cultures are positive for gram-negative his lipid patient is presently on cefepime and vancomycin. Patient has positive hepatitis C same thing was informed to the patient counseling regarding heroine use and IV drug use was provided and will try to avoid morphine here. Patient liver enzymes are elevated but stable secondary to chronic hep C.we're awaiting the wound cultures and patient wanted and tomorrow to make sure patient the abscess doesn't recover. 03/07/2019 The wound cultures and studies are still not available yet patient probably will be discharged on oral and medics tomorrow depending on the organism and the sensitivity. 03/08/2019 Patient won't cultures are positive for Enterobacter and strep agalactiae and patient is being discharged on Cipro and Keflex PHYSICAL EXAMINATION: GENERAL: The patient is alert and oriented x3, not in any acute distress. Obese HEENT: Pupils are round and equally reacting to light. EOMI. No scleral icterus. No conjunctival pallor. Normocephalic, atraumatic. No pharyngeal erythema. No thyromegaly. CARDIOVASCULAR: S1 and S2 present. No murmurs, rubs, or gallops. PULMONARY: patient has crackles in the left lower lung bases ABDOMEN: Soft, nontender, nondistended, normoactive bowel sounds. No palpable organomegaly. MUSCULOSKELETAL: No joint swelling or deformit, left handwas postsurgical addressed, right hand mildly cellulitis still there EXTREMITIES: No cyanosis, clubbing, or pedal edema. NEUROLOGICAL: Gross neurological examination did not reveal any focal deficits. SKIN: No rashes. Assessment and Plan Plan: Abscess of the left hand with extensive cellulitis along with small abscess in the right hand abscess and cellulitis -Elevated liver enzymes probably secondary to chronic hepatitis C liver enzymes. -Hepatitis C secondary to IV drug use patient will need to follow up with gastroenterology and infectious disease as an outpatient -IV drug use history: Extensive counseling was provided and patient will be resumed on his Suboxone, -Marijuana use and nicotine abuse: Counseling was provided -Leukocytosis secondary to abscess, improving -possible atelectasis of the left lung: Incentive spirometry Patient will need pharmacologic GI as well as DVT prophylaxis Patient Condition at Discharge: Good Plan - Discharge Summary Discharge Rx Participant: No New Discharge Prescriptions: New Ciprofloxacin HCl [Cipro] 500 mg PO Q12HR #20 tablet Cephalexin [Keflex] 500 mg PO Q6HR #40 cap No Action Gabapentin [Neurontin] 800 mg PO QID Buprenorphine HCl/Naloxone HCl [Suboxone 8 mg-2 mg Sl Film] 1 film SL BID Discharge Medication List Buprenorphine HCl/Naloxone HCl [Suboxone 8 mg-2 mg Sl Film] 1 film SL BID 03/04/19 [History] Gabapentin [Neurontin] 800 mg PO QID 03/04/19 [History] Cephalexin [Keflex] 500 mg PO Q6HR #40 cap 03/08/19 [Rx] Ciprofloxacin HCl [Cipro] 500 mg PO Q12HR #20 tablet 03/08/19 [Rx] Follow up Appointment(s)/Referral(s): Teddy Robledo MD [Primary Care Provider] - 03/11/19 2:00 [facility] [NON-STAFF] - 03/12/19 10:30 am Nery Noguera MD [STAFF PHYSICIAN] - (wound center [phone] ) Activity/Diet/Wound Care/Special Instructions: Aquacel silver packing of the wound , change q48hr , call [phone] to make an appintment to see Dr Noguera this friday Discharge Disposition: HOME SELF-CARE
== END 2019-03-08 15:00 | disposition home or self-care (01) | DRG 603 ==
LOC: EC 14:45 → 4MS4W 15:25 → 3NMEDONC 03-05 17:13
PROVIDERS: ADMIT Internal Medicine; ATTEND Internal Medicine
PROC: 0J9K0ZX Drainage of Left Hand Subcutaneous Tissue and Fascia, Open Approach, Diagnostic (ICD-10-PCS; principal; 2019-03-06)
PROC: 0HBGXZZ Excision of Left Hand Skin, External Approach (ICD-10-PCS; 2019-03-06)
DX: L03.114 Cellulitis of left upper limb (principal); L02.512 Cutaneous abscess of left hand; B18.2 Chronic viral hepatitis C; F11.10 Opioid abuse, uncomplicated; F12.10 Cannabis abuse, uncomplicated; F17.210 Nicotine dependence, cigarettes, uncomplicated; Z86.14 Personal history of Methicillin resistant Staphylococcus aureus infection; B95.1 Streptococcus, group B, as the cause of diseases classified elsewhere; B96.89 Other specified bacterial agents as the cause of diseases classified elsewhere; Z79.899 Other long term (current) drug therapy; Z71.51 Drug abuse counseling and surveillance of drug abuser; Z71.6 Tobacco abuse counseling
CPT/HCPCS: 10060; 80048; 80053; 80074; 80202; 83605; 85025; 85027; 85652; 86140; 87040; 87070; 87075; 87077; 87101; 87102; 87116; 87186; 87205; 87206; 96374; 99284